=== PATIENT | female | born 1990 | race Caucasian/White ===

== ENCOUNTER 2023-03-09 14:18 | Outpatient (CLI) | payer BC, SELFPAY ==
--- NOTE | ~2023-03-09 | US_ITS ---
EXAMINATION: US pelvic complete w TV DATE: 03/09/2023 14:53 INDICATION: Pelvic pain in female. TECHNIQUE: Multiple transabdominal and transvaginal sonographic images of the pelvis were obtained. COMPARISON: None. FINDINGS: TRANSABDOMINAL ULTRASOUND: The uterus measures 7.5 x 4.4 x 4.0 cm. There is no free fluid in the pelvis. TRANSVAGINAL ULTRASOUND: The endometrial complex measures 5 mm in thickness. There is an intrauterine device in expected posit ion. The right ovary measures 2.4 x 3.2 x 2.3 cm. The left ovary measures 2.5 x 1.6 x 1.3 cm. IMPRESSION: 1. Normal pelvis. Intrauterine device in expected position. Reviewed, dictated and finalized at location E.
== END 2023-03-09 14:19 | disposition home or self-care (01) ==
LOC: CHSIMG 14:21
PROVIDERS: PCP Nurse Practitioner; Visit Provider Nurse Practitioner
DX: R10.2 Pelvic and perineal pain (principal); Z97.5 Presence of (intrauterine) contraceptive device
CPT/HCPCS: 76830; 76856